=== PATIENT | female | born 1995 | race Caucasian/White ===

== ENCOUNTER 2018-09-08 11:35 | Emergency (ER) | payer BC ==
[~2018-09-08] VITALS: Ht 157.5 cm; Wt 50.0 kg
[2018-09-08] MEDS ORDERED: levetiracetam 250mg tablet PO ONE (13:25)
[2018-09-08 13:32] VITALS: BP 127/97
[2018-09-08] MEDS ORDERED: LEVE250T4 PO (13:36)
== END 2018-09-08 13:36 | disposition home or self-care (01) ==
LOC: ER 11:36
DX: R56.9 Unspecified convulsions (principal); G43.909 Migraine, unspecified, not intractable, without status migrainosus; Z79.899 Other long term (current) drug therapy
CPT/HCPCS: 99284